=== PATIENT | male | born 1980 ===

== ENCOUNTER 2017-12-15 08:47 | Emergency (ER) | payer OTHER ==
[2017-12-15] MEDS ORDERED: Ketorolac INJ* 60 MG/2 ML VIAL IM ONE (09:01)
[2017-12-15 09:08] VITALS: BP 140/91
--- NOTE | 2017-12-15 17:02 | UC ---
Alex Schwartz Angela, scribed for Jose Smallwood MD on 12/15/17 at 0906 . Back Pain HPI - HPI Summary HPI Summary: This pt is a 37 y/o male presenting to [facility] c/o right upper back pain x5 days. Pt states his pain began after he slept in a wrong position a few days ago. He notes his pain radiates to his right shoulder. Pt describes his pain as dull and intermittent. His pain is aggravated with movement. His pain is alleviated with rest and ibuprofen. Pt additionally reports having intermittent left sided chest pain, the last time he had this episode was 5-7 days ago. Denies nausea, vomiting, palpitations, diaphoresis. - History of Current Complaint Stated Complaint: SHOULDER PAIN Time Seen by Provider: 12/15/17 08:53 Hx Obtained From: Patient Onset/Duration: Lasting Days, Still Present Timing: Lasting Days Severity Currently: Moderate Pain Intensity: 7 Pain Scale Used: 0-10 Numeric Back Pain: Is Discrete @ - right upper back, Radiates To - right shoulder Aggravating Factor(s): Movement Alleviating Factor(s): Rest, OTC Meds - ibuprofen Associated Signs And Symptoms: Positive: Other - POS: right shoulder pain, intermittent chest pain. NEG: nausea, vomiting, palpitations, diaphoresis. Negative: Swelling, Bruising, Fever, Weakness, Numbness, Tingling, Bladder Incontinence, Bowel Incontinence - Allergies/Home Medications Allergies/Adverse Reactions: Allergies Allergy/AdvReac Type Severity Reaction Status Date / Time No Known Allergies Allergy Verified 12/15/17 08:55 PMH/Surg Hx/FS Hx/Imm Hx Other Endocrine History: DENIES: diabetes Other Cardiovascular History: DENIES: HTN - Surgical History Surgical History: None - Family History Known Family History: Positive: Hypertension, Diabetes Negative: Cardiac Disease - Social History Alcohol Use: Occasionally Substance Use Type: None Smoking Status (MU): Never Smoked Tobacco Review of Systems Constitutional: Negative Skin: Negative Eyes: Negative ENT: Negative Respiratory: Negative Cardiovascular: Chest Pain - intermittent Gastrointestinal: Negative Genitourinary: Negative Motor: Negative Neurovascular: Negative Musculoskeletal: Other: - upper back pain, right shoulder pain Neurological: Negative Psychological: Negative Is Patient Immunocompromised?: No All Other Systems Reviewed And Are Negative: Yes Physical Exam - Summary Physical Exam Summary: VITAL SIGNS: Reviewed. GENERAL: Patient is a well-developed and nourished male who is lying comfortable in the stretcher. Patient is not in any acute respiratory distress. HEAD AND FACE: Normocephalic EYES: PERRLA, EOMI x 2. EARS: Hearing grossly intact. MOUTH: Oropharynx within normal limits. NECK: Supple, trachea is midline, no adenopathy, no JVD, no carotid bruit. CHEST: Symmetric, no tenderness at palpation LUNGS: Clear to auscultation bilaterally. No wheezing or crackles. CVS: Regular rate and rhythm, S1 and S2 present, no murmurs or gallops appreciated. ABDOMEN: Soft, non-tender. Bowel sounds are normal. No abdominal abnormal pulsations. MSK: Full ROM in all major joints, no edema, no cyanosis or clubbing. Tenderness in the right thoracic paraspinal muscle. No shoulder deformity. No ecchymosis. No hematoma. Pt is neurovascular intact. NEURO: Alert and oriented x 3. No acute neurological deficits. Speech is normal and follows commands. SKIN: Dry and warm Triage Information Reviewed: Yes Vital Signs Reviewed: Yes Diagnostics - EKG Cardiac Rate: NL Cardiac Rhythm: Sinus: Normal - EKG at 09:11 shows normal sinus rhythm at [address] elevations. Re-Evaluation - Re-Evaluation First Eval Re-Evaluation Time: 09:21 Comment: I reviewed the EKG results with the pt. He will be discharged home. Back Pain Course/Dx - Course Course Of Treatment: This pt is a 37 y/o male presenting to [facility] c/o right upper back pain x5 days. Pt states his pain began after he slept in a wrong position a few days ago. He notes his pain radiates to his right shoulder. Pt describes his pain as dull and intermittent. His pain is aggravated with movement. His pain is alleviated with rest and ibuprofen. Pt additionally reports having intermittent left sided chest pain, the last time he had this episode was 5-7 days ago. Denies nausea, vomiting, palpitations, diaphoresis. EKG shows normal sinus rhythm without ST elevations. In the UC course the pt was given Toradol for the pain. After this medications the pt is feeling better. I discussed the EKG results with the patient. Pt was instructed to return to the urgent care or go to ER immediately if any of the symptoms return or worsens. Plan of care was discussed with the patient and pt understands and agrees. All questions were answered to patient satisfaction. There were no further complaints or concerns. Pt will be discharged to home with follow up from PCP. He was given prescriptions for Gambell, Motrin, and Robaxin. Pt is hemodynamically stable, alert and oriented x3. The patient was found to have increased blood pressure in UC. The patient will follow up with PCP for better control of BP. - Differential Dx/Diagnosis Provider Diagnoses: Back pain. Chest pain, noncardiac Discharge - Sign-Out/Discharge Documenting (check all that apply): Discharge - discharge to home - Discharge Plan Condition: Stable Disposition: HOME Prescriptions: Hydrocodone/Acetaminophen [Gambell 5-325 Tablet] 1 each PO Q6H PRN #12 tablet MDD 4 PRN Reason: Pain Ibuprofen TAB* [Motrin TAB* 800 MG] 800 mg PO Q8H PRN #30 tab PRN Reason: Pain Methocarbamol TAB* [Robaxin 500 MG TAB*] 750 mg PO TID PRN #12 tab PRN Reason: Pain Patient Education Materials: Arthralgia (ED), Back Pain (ED), Noncardiac Chest Pain (ED) Referrals: [facility] [Outside] Additional Instructions: FOLLOW UP WITH YOUR PRIMARY CARE PROVIDER WITHIN ONE WEEK FOR HIGH BLOOD PRESSURE NOTED TODAY. RETURN TO URGENT CARE OR THE ED FOR ANY WORSENING OR NEW SYMPTOMS. Take medications as instructed Increase your fluid intake Return to the UC if symptoms worsen The documentation as recorded by the Alex shin Angela accurately reflects the service I personally performed and the decisions made by me, Jose Smallwood MD.
== END 2017-12-15 09:32 | disposition home or self-care (01) ==
LOC: UCEAST 08:47
DX: M54.9 Dorsalgia, unspecified (principal); R07.89 Other chest pain; M25.511 Pain in right shoulder
CPT/HCPCS: 93005; 96372; 99212; G0463; J1885